=== PATIENT | male | born 1955 ===

== ENCOUNTER 2017-10-07 07:30 | Day surgery (SDC) | payer MEDICAID ==
[2017-10-07 08:08] VITALS: O2SAT 100
[2017-10-07] MEDS ORDERED: Midazolam 2 MG/2 ML VIAL ONE (10:53)
[2017-10-07] MEDS ORDERED: Propofol 10 mg/ml Inj (20 ML) ONE (10:54)
[2017-10-07] MEDS ORDERED: Lidocaine Hydrochloride 5 ML INJ ONE (10:54)
[2017-10-07] MEDS ORDERED: Lactated Ringer's 1,000 ML IV ONE (11:00)
[2017-10-07] MEDS ORDERED: ePHEDrine 50 mg/ml Inj ONE (11:33)
[2017-10-07 15:57] VITALS: TEMP 97.6
[2017-10-07 16:03] VITALS: BP 103/55; PULSE 61; RESP 15
== END 2017-10-07 13:00 | disposition home or self-care (01) ==
LOC: C.ENDO 07:30
PROVIDERS: ATTEND Internal Medicine
DX: D64.9 Anemia, unspecified (principal); K64.8 Other hemorrhoids; K29.70 Gastritis, unspecified, without bleeding; K29.40 Chronic atrophic gastritis without bleeding
CPT/HCPCS: 43239; 45378; 88305; 88312; 88313; 88342; J2250; J2704; J3010; J7120